=== PATIENT | female | born 1965 | race Caucasian/White ===

== ENCOUNTER 2016-06-05 11:18 | Emergency (ER) | payer BC ==
[2016-06-05] MEDS ORDERED: ORPHENADRINE CITRATE 30 MG/ML VIAL IV ONE (11:34)
[2016-06-05] MEDS ORDERED: KETOROLAC TROMETHAMINE 30 MG/ML VIAL IV ONE (11:34)
--- NOTE | 2016-06-05 11:39 | ERNOTE ---
Chest Pain/Cardiac HPI Date of Service: 06/05/16 Chief Complaint: Chest Pain Time Seen by Provider: 06/05/16 11:26 Source: patient Exam Limitations: no limitations Allergies/Adverse Reactions: Allergies No Known Allergies Allergy (Unverified 06/05/16 11:37) Home Medications: HOME MEDICATIONS Cyclobenzaprine HCl [Flexeril] 10 mg PO TID PRN #30 tab 06/05/16 [Last Taken Unknown] Doxycycline Monohydrate 100 mg PO BID #20 tablet 06/05/16 [Last Taken Unknown] Duloxetine HCl [Cymbalta] 60 mg PO DAILY 06/05/16 [Last Taken Unknown] Meloxicam [Mobic] 15 mg PO DAILY 06/05/16 [Last Taken Unknown] Naproxen [Naprosyn] 500 mg PO BID #60 tablet 06/05/16 [Last Taken Unknown] Ranitidine HCl [Zantac] 150 mg PO HS 06/05/16 [Last Taken Unknown] Rosuvastatin Calcium [Crestor] 20 mg PO DAILY 06/05/16 [Last Taken Unknown] risperiDONE [Risperdal] 1 mg PO BID 06/05/16 [Last Taken Unknown] Narrative: Pt presents with chest wall pain that started 4 days ago. Pt complains of pain with palpation. Date (Duration): 06/01/16 Timing: constant Severity/Quality: moderate Location: shoulder, back, left chest Chest Pain Radiation: no radiation Activities at Onset: none Prior Chest Pain/Cardiac Workup: Reports: no prior cardiac workup Review of Systems - Review of Systems Constitutional: Present: See HPI EYE: Present: no symptoms reported ENT: Present: no symptoms reported Respiratory: Present: no symptoms reported Cardiology: Present: other - chest wall pain Gastrointestinal/Abdominal: Present: no symptoms reported Genitourinary: Present: no symptoms reported Musculoskeletal: Present: no symptoms reported Skin: Present: no symptoms reported Neurological: Present: no symptoms reported Endocrine: Present: no symptoms reported Hematologic/Lymphatic: Present: no symptoms reported Psych: Present: no symptoms reported - Patient's Past Medical History Patient History - Medical: Arthritis, Other Patient History - Cardiac/Respiratory: COPD - ? Patient History - Cancer: No Hx of Cancer Patient History - Surgical Procedures: Tubal Ligation, Other - Social History Living Situations: home Smoking Status: Current every day smoker Physical Exam - Physical Exam General Appearance: Present: wd/wn, alert, moderate distress Eye Exam: Normal inspection: bilateral, PERRL: bilateral Ears, Nose, Throat: Present: normal ENT inspection, hearing grossly normal, normal pharynx Neck: Present: normal inspection, nontender Respiratory: Present: no respiratory distress, normal breath sounds, no accessory muscle use, lungs clear, chest tenderness - to palpation Cardiovascular/Chest: Present: regular rate, rhythm, no murmur, normal peripheral pulses Gastrointestinal/Abdominal: Present: normal bowel sounds, nontender, nondistended, soft, no organomegaly Rectal Exam: Present: deferred Back Exam: Present: normal inspection, normal range of motion Extremity Exam: Present: normal inspection, non-tender, no edema, normal range of motion Neurological Exam: Present: alert, oriented, normal mood/affect Skin Exam: Present: normal color, warm/dry Lymphatic Exam: Present: no adenopathy ED Progress - Results and Orders Patient's Lab Results:: I have reviewed the patient's lab results. - Vital Signs Patient's Vital Signs:: I have reviewed the patient's vital signs. Vital Signs: Vital Signs 06/05/16 11:28 Temperature 36.1 C L Pulse Rate 79 Respiratory 18 Rate Blood Pressure 130/88 O2 Sat by Pulse 96 Oximetry - X-Ray X-Ray #1 X-Ray: chest - Progress/Reassessment Chief Complaint: Chest Pain Progress:: Improved - Transfer of Care Expected Disposition: Discharge Plan - Plan Plan: Pt to be placed on Doxycycline, Naprosyn and Flexeril and is to F/U with her FP within 10 days. Pt will stop the Mobic while we try the Naprosyn. Departure - Departure Clinical Impression: COPD (chronic obstructive pulmonary disease) with acute bronchitis, Chest wall pain Disposition: Home self-care Condition: Good Instructions: Chronic Obstructive Pulmonary Disease, [id number], Chest Wall Pain, [id number] Referrals: Chari Corral DO [Primary Care Provider] - Prescriptions: Cyclobenzaprine HCl [Flexeril] 10 mg PO TID PRN #30 tab PRN Reason: MUSCLE SPASMS Doxycycline Monohydrate 100 mg PO BID #20 tablet Naproxen [Naprosyn] 500 mg PO BID #60 tablet
[2016-06-05] MEDS ORDERED: ASPIRIN 81 MG TAB.CHEW PO ONE (11:46)
[2016-06-05] MEDS ORDERED: ORPHENADRINE CITRATE 30 MG/ML VIAL ONE (11:47)
[2016-06-05] MEDS ORDERED: ASPIRIN 81 MG TAB.CHEW ONE (11:47)
[2016-06-05] MEDS ORDERED: KETOROLAC TROMETHAMINE 30 MG/ML VIAL ONE (11:47)
[2016-06-05 11:50] LABS: Hematocrit 39.5 % (37.0-47.0); Hemoglobin 13.4 gm/dL (12.5-16.0); Mean Cell Volume 86.1 fl (78-100); Mean Corpuscular Hemoglobin 29.2 pg (27-31); Mean Corpuscular Hgb Conc 33.9 g/dl (32-36); Mean Platelet Volume 9.6 fl (6.0-9.5); Neutrophil # 5.1 K/mm3 (1.3-6.0); Neutrophil % 58.6 % (42-75.0); Platelet Count 236 K/mm3 (150-450); Red Blood Count 4.59 M/mm3 (4.2-5.4); Red Cell Distribution Width 12.3 % (11.5-14.0); White Blood Count 8.7 K/mm3 (4.0-10.5)
[2016-06-05 12:04] LABS: ALT 23 U/L (19-67); AST 13 U/L (0-48); Albumin * 3.8 gm/dl (3.4-5.0); Alkaline Phosphatase * 57 U/L (50-170); Anion Gap 13.1 mmol/L (6.8-13.8); BUN/Creatinine Ratio 18.3 (9.0-21.6); Bilirubin, Total 0.3 mg/dL (0.0-1.1); Blood Urea Nitrogen 15 mg/dL (3-23); Calcium * 9.2 mg/dL (7.9-10.9); Chloride 104 mmol/L (97-106); Glucose * 93 mg/dL (70-110); Magnesium 1.9 mg/dL (1.2-2.8); Potassium 4.1 mmol/L (3.4-4.6); Sodium 139 mmol/L (132-142); Total Protein 7.5 gm/dL (6.2-8.2); Troponin I Less than 0.017 ng/ml (0.00-0.10)
[2016-06-05 14:10] VITALS: BP 105/73
== END 2016-06-05 13:45 | disposition home or self-care (01) ==
LOC: ER 11:18
DX: J44.0 Chronic obstructive pulmonary disease with (acute) lower respiratory infection (principal); J20.9 Acute bronchitis, unspecified; R07.89 Other chest pain; F17.210 Nicotine dependence, cigarettes, uncomplicated